=== PATIENT | male | born 1955 | race Caucasian/White ===

== ENCOUNTER 2017-06-10 19:07 | Emergency (ER) | payer MEDICAID ==
[~2017-06-10] VITALS: Ht 170.2 cm; Wt 77.0 kg
[2017-06-10 19:33] VITALS: Ht 170.2 cm; Wt 77.0 kg
--- NOTE | 2017-06-10 20:41 | ERD ---
ER Documentation Chief Complaint Date/Time DATE: 06/10/17 TIME: 20:34 Chief Complaint BIB SELF, CC: RIGHT EYE floaters, NO TRAUMA X 1 WEEK HPI 61-year-old male presents here in emergency department for complaint of floaters from the right eye, patient states that he sees circular floaters in his right eye for the last 2 days. Patient denies any eye pain. Patient denies any trauma in the eye. Patient denies any foreign body sensation in the eye. ROS All systems reviewed and are negative except as per history of present illness. Medications Home Meds Reported Medications [none] Unknown Strength No Conflict Check 06/10/17 Allergies Allergies: Coded Allergies: No Known Allergy (Unverified , 06/10/17) PMhx/Soc Medical and Surgical Hx: pt denies Medical Hx, pt denies Surgical Hx Hx Alcohol Use: No Hx Substance Use: No Hx Tobacco Use: No Smoking Status: Never smoker FmHx Family History: No coronary disease, No diabetes, No other Physical Exam Vitals Vital Signs Date Time Temp Pulse Resp B/P Pulse Ox O2 Delivery O2 Flow Rate FiO2 06/10/17 19:33 98.3 72 18 126/76 100 Physical Exam GENERAL: The patient is well developed and appropriate for usual state of health, in no apparent distress. CHEST: Clear to auscultation bilaterally. There are no rales, wheezes or rhonchi. HEART: Regular rate and rhythm. No murmurs, clicks, rubs or gallops. No S3 or S4. ABDOMEN: Soft, nontender and nondistended. Good bowel sounds. No rebound or guarding. No gross peritonitis. No gross organomegaly or masses. No Iglesias sign or McBurney point tenderness. BACK: No midline or flank tenderness. EXTREMITIES: Equal pulses bilaterally. There is no peripheral clubbing, cyanosis or edema. No focal swelling or erythema. Full range of motion. Grossly neurovascularly intact. NEURO: Alert and oriented. Cranial nerves 2-12 intact. Motor strength in all 4 extremities with 5/5 strength. Sensation grossly intact. Normal speech and gait. SKIN: There is no apparent rash or petechia. The skin is warm and dry. HEMATOLOGIC AND LYMPHATIC: There is no evidence of excessive bruising or lymphedema. No gross cervical, axillary, or inguinal lymphadenopathy. Results 24 hrs PROCEDURE: Ultrasound soft tissue CLINICAL INDICATION: Right eye floaters. TECHNIQUE: An ultrasound of the bilateral globes was performed utilizing skinner scale imaging. COMPARISON: None. FINDINGS: The bilateral anterior chambers and lenses are unremarkable. Particulate and linear echoes are noted in the bilateral vitreous bodies, posteriorly. IMPRESSION: 1. Particulate and linear echoes in the bilateral vitreous bodies, posteriorly. These are nonspecific but are throught to represent vitreous hemorrhages, possibly with superimposed posterior vitreous detachments. Retinal detachments may also be considered but are thought to be less likely. Further evaluation with fundoscopy is recommended. RPTAT: HTAR .Tommy Enciso MD, MD Date Time Electronically viewed and signed by .Tommy Enciso MD, MD on 06/10/2017 22:30 .R/ CC: MARANDA MARIN NP Procedures/MDM Medical decision making: Patient's most likely is consistent with vitreous hemorrhages seen in the ultrasound, possible superimposed posterior vitreous detachment, no symptoms of any retinal detachment at this time, less suspicion for this. Patient has good visual acuity. Patient did not have any trauma in the eye, though suspicion for any traumatic injury. I discussed this case with my attending physician, Dr. Johns, outpatient management is appropriate at this time and patient does not have any retinal detachment, also no trauma on affected area. Patient was advised to see eye doctor within 1-2 days for further evaluation and management. Patient was advised to return to emergency department for any worsening symptoms. Disposition: Home. Stable. Departure Diagnosis: Primary Impression: Vitreous hemorrhage of both eyes Condition: Stable Additional Instructions: see eye doctor in 1-2 days MARANDA MARIN NP Jun 10, 2017 20:41
--- NOTE | 2017-06-10 22:31 | RADRPT ---
PROCEDURE: Ultrasound soft tissue CLINICAL INDICATION: Right eye floaters. TECHNIQUE: An ultrasound of the bilateral globes was performed utilizing skinner scale imaging. COMPARISON: None. FINDINGS: The bilateral anterior chambers and lenses are unremarkable. Particulate and linear echoes are noted in the bilateral vitreous bodies, posteriorly. IMPRESSION: 1. Particulate and linear echoes in the bilateral vitreous bodies, posteriorly. These are nonspecifi c but are throught to represent vitreous hemorrhages, possibly with superimposed posterior vitreous detachments. Retinal detachments may also be considered but are thought to be less likely. Further e valuation with fundoscopy is recommended. RPTAT: HTAR .Tommy Enciso MD, MD Date Time Electronically viewed and signed by .Tommy Enciso MD, on 06/10/2017 22:30 .R/
== END 2017-06-10 22:56 | disposition home or self-care (01) ==
LOC: FTE 19:07
DX: H43.13 Vitreous hemorrhage, bilateral (principal)
CPT/HCPCS: 76536; Z7502